=== PATIENT | female | born 1995 | race Caucasian/White ===

== ENCOUNTER 2023-11-05 18:34 | Inpatient (IN) | payer BC, SELFPAY ==
[2023-11-05 14:40] VITALS: BP 143/91
--- NOTE | 2023-11-05 15:42 | ED.GENMED ---
History of Present Illness
<Erin Wesley PA-C - Last Filed: 11/05/23 21:11>
General
Chief Complaint: Urinary Symptoms
Source: patient
Exam Limitations: none
Time Seen by Provider: 11/05/23 15:10
Nursing documentation reviewed up to this point in time: agreed with
Travel History
Have you had any contact with someone who has COVID-19?: No
Do you have any symptoms of coronavirus? Fever > 100 degrees, chills, cough, shortness of breath, sore throat, loss of taste or smell, muscle aches, or headache?: No
History of Present Illness
History of Present Illness:
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
last week tested and treated for yeast and vbv (1 dose diflucan, flagyl 7 days)
started with back pain 3 datys ago, suspected fever overnight. went to PCP 2 days ago and said she was having vaginal bleeding and no urinary sypmtoms, but had nausea/vomitinx 1
they sent urine culture and empirically started her on bactrim
she had no urainry symptoms at the time
took 3 total doses of bactrim
says her last tempw as last night 102.8 t max
has been using tylenol 2 extra strength 3-4 times a day
today she notices that her eyes are yellow
she has no sanchez any skin itching or yellowing, cp, sob, abdominal pain
she is having her period a few days earlier than usual
Past History
<Erin Wesley PA-C - Last Filed: 11/05/23 21:11>
Past History
ED Past Medical History: Other (ARF secondary to abx, dilaysis x 1 ) and Other (ovarian cyst)
Social History
Tobacco: Non-smoker
Alcohol: None
Review of Systems
<Erin Wesley PA-C - Last Filed: 11/05/23 21:11>
Review of Systems
Allergies reviewed?: Yes
All Other Systems: Not applicable
Phy Exam
<Erin Wesley PA-C - Last Filed: 11/05/23 21:11>
Physical Exam
Physical Exam:
GENERAL: Alert , in no apparent distress
EYE: pupils equal and reactive , sclera icteric
NECK: Supple
ENT: o/p clr, mmm.
CARDIAC: Regular rate and rhythm .no edema
LUNGS: Clear breath sounds bilaterally, no acute respiratory distress, no wheezes/rales/rhonchi
ABDOMEN: Soft, without focal tenderness, no r/g, no cvat, normal bowel sounds
nontender
no pulido's sign
no cvat
NEUROLOGICAL: Alert and oriented, no focal neuro deficits
SKIN: Warm and dry, skin intact, no jaundice
MUSCULOSKELETAL: No edema, well perfused. neg levon's sign
PSYCH: Normal and appropriate interaction.
Course
<Erin Wesley PA-C - Last Filed: 11/05/23 21:11>
Orders/Labs/Results
Orders:
Orders
11/05/23 Dinner
Regular
At Your Request: Full Participation
11/05/23 15:25
Test Result ONCE
11/05/23 15:26
0.9% Sodium Chloride 1000 ml [Nss] 1,000 ml IV BOLUS
11/05/23 16:14
Acetaminophen Urgent
Complete Blood Count/With Diff Urgent
Comprehensive Metabolic Panel Urgent
Direct Bilirubin Urgent
Comment: ADDON
GGTP Urgent
Comment: ADD ON
HCG, Serum Qualitative Screen Urgent
Hepatitis A Antibody, Total Urgent
Comment: ADDON
Hepatitis B Core Ab, Total Urgent
Comment: ADDON
Hepatitis B Surface Antigen Urgent
Comment: ADDON
Hepatitis C Antibody Urgent
Comment: ADDON
LDH Urgent
Comment: ADD ON
Lipase Urgent
Manual Differential Urgent
Monotest Urgent
PTT Urgent
Prothrombin Time Urgent
Urinalysis Urgent
Date Specimen was Collected: 11/05/23
Time Specimen was Collected: 14:48
Urine Microscopic Urgent
Date Specimen was Collected: 11/05/23
Time Specimen was Collected: 14:48
Urine Culture Urgent
[place] Source: Urine
Specimen Description:
Obtained by: [facility]
Date Specimen was Collected: 11/05/23
Time Specimen was Collected: 14:48
11/05/23 17:06
US Abdomen Complete/Upper Urgent
Comment:
Reason For Exam: DRUG INDUCED LIVER INJURY
11/05/23 17:37
Add On- LAB Urgent
Tests Added?: hepatitis a, hep b core and surface, hep c
11/05/23 17:45
Add On- LAB Routine
Tests Added?: direct bilirubin
11/05/23 18:23
Admit/Transfer Patient As Directed
Co-Sign Provider:
Level of Care: Inpatient admission
Assign to:: Medical/Surgical
Physician / Group: Nasra
Diagnosis: Acute hepatitis
Reason for Hospitalization: hepatitis
Expected length of stay greater than two midnights?: Yes
ELOS- Estimated Length of Stay in days: 2
I certify the patient meets the requirements for IP care: Yes
11/05/23 18:24
Code Status As Directed
Resuscitation Status: Full Code
11/05/23 18:27
Add On- LAB Routine
Tests Added?: LDH, GGT
11/05/23 19:25
0.9% Sodium Chloride 1000 ml [Nss] 1,000 ml IV 80 mls/hr
Acetaminophen [Tylenol] 650 mg PO Q6HPRN PRN
Ondansetron Injectable [Zofran] 4 mg IV Q6HPRN PRN
11/05/23 19:25
Activity As Directed
Activity Level: Ambulate
DX Deep Vein Thrombosis Video Routine
11/06/23 06:00
Complete Blood Count/With Diff IN AM
Comprehensive Metabolic Panel IN AM
11/06/23 18:00
Enoxaparin Sodium [Lovenox] 40 mg SC QPM
11/07/23 06:00
Complete Blood Count/With Diff IN AM
Comprehensive Metabolic Panel IN AM
Abnormal Lab Results
11/05/23
16:14
RBC 4.17 L 10^6/uL
(4.20-5.40)
Hgb 11.4 L g/dL
(12.0-16.0)
Hct 35.1 L %
(37.0-47.0)
MCHC 32.5 L g/dL
(33.0-37.0)
Plt Count 126 L 10^3/uL
(130-400)
PT 15.0 H Sec
(11.4-14.6)
Glucose 104 H mg/dl
(70-99)
Total Bilirubin 6.0 H mg/dl
(0.2-1.3)
Direct Bilirubin 4.3 H mg/dl
(0.0-0.4)
GGT 427 H U/L
(12-43)
AST 232 H U/L
(14-36)
ALT 218 H U/L
(0-35)
Alkaline Phosphatase 427 H U/L
(38-126)
Lactate Dehydrogenase 975 H U/L
(120-246)
Urine Occult Blood 4+ A
(Negative)
Urine Bilirubin 2+ A
(Negative)
Urine Urobilinogen 4+ A
(Neg - 1+)
Ur Leukocyte Esterase Trace A
(Negative)
Urine RBC 30-40 A /HPF
(0-2)
Urine Bacteria Few A
(Negative)
Acetaminophen < 10 L ug/ml
(10-30)
11/05/23 16:14
11/05/23 16:14
Vital Signs
Initial and Last Documented VS:
Initial Vital Signs
Temp Pulse Resp BP Pulse Ox
99.4 F 87 18 143/91 98
11/05/23 14:40 11/05/23 14:40 11/05/23 14:40 11/05/23 14:40 11/05/23 14:40
Last Documented Vital Signs
Temp Pulse Resp BP Pulse Ox
101.1 F H 112 18 124/82 97
11/05/23 20:19 11/05/23 20:19 11/05/23 20:19 11/05/23 20:19 11/05/23 20:19
<Jimbo Vail, DO - Last Filed: 11/05/23 16:35>
Orders/Labs/Results
Orders:
Orders
11/05/23 Dinner
Regular
At Your Request: Full Participation
11/05/23 15:25
Test Result ONCE
11/05/23 15:26
0.9% Sodium Chloride 1000 ml [Nss] 1,000 ml IV BOLUS
11/05/23 16:14
Acetaminophen Urgent
Complete Blood Count/With Diff Urgent
Comprehensive Metabolic Panel Urgent
Direct Bilirubin Urgent
Comment: ADDON
GGTP Urgent
Comment: ADD ON
HCG, Serum Qualitative Screen Urgent
Hepatitis A Antibody, Total Urgent
Comment: ADDON
Hepatitis B Core Ab, Total Urgent
Comment: ADDON
Hepatitis B Surface Antigen Urgent
Comment: ADDON
Hepatitis C Antibody Urgent
Comment: ADDON
LDH Urgent
Comment: ADD ON
Lipase Urgent
Manual Differential Urgent
Monotest Urgent
PTT Urgent
Prothrombin Time Urgent
Urinalysis Urgent
Date Specimen was Collected: 11/05/23
Time Specimen was Collected: 14:48
Urine Microscopic Urgent
Date Specimen was Collected: 11/05/23
Time Specimen was Collected: 14:48
Urine Culture Urgent
[place] Source: Urine
Specimen Description:
Obtained by: [facility]
Date Specimen was Collected: 11/05/23
Time Specimen was Collected: 14:48
11/05/23 17:06
US Abdomen Complete/Upper Urgent
Comment:
Reason For Exam: DRUG INDUCED LIVER INJURY
11/05/23 17:37
Add On- LAB Urgent
Tests Added?: hepatitis a, hep b core and surface, hep c
11/05/23 17:45
Add On- LAB Routine
Tests Added?: direct bilirubin
11/05/23 18:23
Admit/Transfer Patient As Directed
Co-Sign Provider:
Level of Care: Inpatient admission
Assign to:: Medical/Surgical
Physician / Group: Nasra
Diagnosis: Acute hepatitis
Reason for Hospitalization: hepatitis
Expected length of stay greater than two midnights?: Yes
ELOS- Estimated Length of Stay in days: 2
I certify the patient meets the requirements for IP care: Yes
11/05/23 18:24
Code Status As Directed
Resuscitation Status: Full Code
11/05/23 18:27
Add On- LAB Routine
Tests Added?: LDH, GGT
11/05/23 19:25
0.9% Sodium Chloride 1000 ml [Nss] 1,000 ml IV 80 mls/hr
Acetaminophen [Tylenol] 650 mg PO Q6HPRN PRN
Ondansetron Injectable [Zofran] 4 mg IV Q6HPRN PRN
11/05/23 19:25
Activity As Directed
Activity Level: Ambulate
DX Deep Vein Thrombosis Video Routine
11/06/23 06:00
Complete Blood Count/With Diff IN AM
Comprehensive Metabolic Panel IN AM
11/06/23 18:00
Enoxaparin Sodium [Lovenox] 40 mg SC QPM
11/07/23 06:00
Complete Blood Count/With Diff IN AM
Comprehensive Metabolic Panel IN AM
Abnormal Lab Results
11/05/23
16:14
RBC 4.17 L 10^6/uL
(4.20-5.40)
Hgb 11.4 L g/dL
(12.0-16.0)
Hct 35.1 L %
(37.0-47.0)
MCHC 32.5 L g/dL
(33.0-37.0)
Plt Count 126 L 10^3/uL
(130-400)
PT 15.0 H Sec
(11.4-14.6)
Glucose 104 H mg/dl
(70-99)
Total Bilirubin 6.0 H mg/dl
(0.2-1.3)
Direct Bilirubin 4.3 H mg/dl
(0.0-0.4)
GGT 427 H U/L
(12-43)
AST 232 H U/L
(14-36)
ALT 218 H U/L
(0-35)
Alkaline Phosphatase 427 H U/L
(38-126)
Lactate Dehydrogenase 975 H U/L
(120-246)
Urine Occult Blood 4+ A
(Negative)
Urine Bilirubin 2+ A
(Negative)
Urine Urobilinogen 4+ A
(Neg - 1+)
Ur Leukocyte Esterase Trace A
(Negative)
Urine RBC 30-40 A /HPF
(0-2)
Urine Bacteria Few A
(Negative)
Acetaminophen < 10 L ug/ml
(10-30)
11/05/23 16:14
11/05/23 16:14
Vital Signs
Initial and Last Documented VS:
Initial Vital Signs
Temp Pulse Resp BP Pulse Ox
99.4 F 87 18 143/91 98
11/05/23 14:40 11/05/23 14:40 11/05/23 14:40 11/05/23 14:40 11/05/23 14:40
Last Documented Vital Signs
Temp Pulse Resp BP Pulse Ox
101.1 F H 112 18 124/82 97
11/05/23 20:19 11/05/23 20:19 11/05/23 20:19 11/05/23 20:19 11/05/23 20:19
<Erin Wesley PA-C - Last Filed: 11/05/23 21:11>
MDM/Problems Addressed
Differential Diagnosis Includes:
DILI, cholangitis, choledocholithaisis, heptatitis, mono
MDM/Problems Addressed:
28 y/o F with h/o remote ARF requiring 1 dialysis treatment (had ovarian cyst that got infected, was on abx i think vanc, and ended up in ARF
otherwise healthy
last week had vag itching and irritation, treated with diflucan and flagyl
started having back pain 3 days ago, n/v x 1, then fever; taking tylenol
n/v/back pain resolved; PCP saw her 2 days ago and gave bactrim empirically for UTI though no urinary sypmtoms
now icteric sclera; trasaminitis 200s, bili 6, tyylenol level < 10, cr normal
added on hepatitis panel, i'm suspecting the diflucna or flagyl
US was hepatic steatosis
admit, gi
<Erin O'Brien, PA-C - Last Filed: 11/05/23 21:11>
*Critical Care Note
Total Time (30-74mins, 75-104mins- exclusive of procedures): Not Applicable
ED Attending Note
<Erin Wesley PA-C - Last Filed: 11/05/23 21:11>
-
Portions of this chart may have been created with voice recognition software.� Occasional wrong word or��sound alike� substitutions may have occurred due to the inherent limitations of voice recognition software.
<Jimbo Vail DO - Last Filed: 11/05/23 16:35>
ED Attending Note
Patient seen and examined by attending physician: Yes
I performed the substantive portion of visit, reviewed & personally made and approve the management plan that is documented in note by myself or ARELI.: Yes
ED Attending Note:
Patient is a 28-year-old female with a history of 1 episode of renal dialysis following vancomycin for staph infection related to ovarian cysts surgery and presents today with fever chills yellowish sclera along with having neck and back pain that
started couple days ago but is feeling better today. Patient was treated with Flagyl and Diflucan for bacterial vaginosis. Patient had a temp of 102 and went to see her physician a couple days ago and was started on Bactrim. Patient did not have
a urine test done at that time. Patient complains of coughing with no production. Patient denies nasal congestion. On physical exam patient feels warm. Neck is supple without adenopathy or tenderness. Heart is regular lungs are clear. Abdomen
is nontender with no CVA tenderness. Will wait lab results but anticipate having to do further studies. This may be all due to a viral versus possible pyelonephritis.
Discharge Plan
Departure
Patient Disposition: Admit
Date of Disposition: 11/05/23
Time of Disposition: 17:38
Admit to: Med/Surg
Presentation/result/management discussed w/ accepting MD/DO: Hospitalist
Condition: Fair
Covid-19: Not Applicable
Discharge Problem:
Hyperbilirubinemia, Drug-induced liver injury
Interventions
Interventions:
*Risk Screen - Suicide Last Done: 11/05/23 20:52
*General Assessment Last Done: 11/05/23 14:40
*Neglect/Abuse Screening Last Done: 11/05/23 14:40
ED- Fall Risk Assessment Last Done: 11/05/23 16:31
*ED COVID-19 Vaccine History Last Done: 11/05/23 19:49
*Nursing Disposition Last Done: 11/05/23 19:20
ED-Female Genitourinary Assessment Last Done: 11/05/23 16:31
Discharge Date and Time
Discharge Date/Time: 11/05/23 19:22
[2023-11-05] MEDS: NSS 1000 IV ×2 (16:25→19:44)
[2023-11-05 16:33] LABS: Hematocrit 35.1 % (37.0-47.0); Hemoglobin 11.4 g/dL (12.0-16.0); Mean Corp Hgb Conc. 32.5 g/dL (33.0-37.0); Mean Corpuscular Hgb 27.3 pg (27.0-31.0); Mean Corpuscular Volume 84.2 fL (81.0-99.0); Mean Platelet Volume 9.9 fL (7.4-10.4); Platelet Count 126 10^3/uL (130-400); Red Blood Cell Count 4.17 10^6/uL (4.20-5.40); Red Cell Dist. Width 13.9 % (11.5-14.5); White Blood Cell Count 8.3 10^3/uL (4.8-10.8)
[2023-11-05 16:34] LABS: Urine Albumin Trace (Neg - Trace); Urine Bilirubin 2+ (Negative); Urine Character Clear (Clear); Urine Color Yellow; Urine Glucose Negative (Negative); Urine Ketone Negative (Negative); Urine Leukocyte Trace (Negative); Urine Nitrite Negative (Negative); Urine Occult Blood 4+ (Negative); Urine Urobilinogen 4+ (Neg - 1+); Urine pH 6.5 (5.0-9.0)
[2023-11-05 16:41] LABS: Urine Squamous Cell 26-30 /LPF (Few)
[2023-11-05 16:42] LABS: Urine Bacteria Few (Negative); Urine Red Blood Cell 30-40 /HPF (0-2)
[2023-11-05 16:48] LABS: APTT 33.5 Sec (23.4-35.0); HCG, Serum Qualitative Screen Negative
[2023-11-05 16:49] LABS: ALT (SGPT) 218 U/L (0-35); AST (SGOT) 232 U/L (14-36); Albumin 4.2 g/dl (3.5-5.0); Alkaline Phosphatase 427 U/L (38-126); Blood Urea Nitrogen 7 mg/dl (7-17); Calcium 9.3 mg/dl (8.4-10.2); Carbon Dioxide 27 mmol/L (22-30); Chloride 100 mmol/L (98-107); Glucose 104 mg/dl (70-99); Potassium 4.1 mmol/L (3.5-5.1); Sodium 135 mmol/L (135-145); Total Protein 7.5 g/dl (6.3-8.2); eGFR > 60.00
[2023-11-05 17:12] LABS: Pathologist Reviewed No; Segmented Neutrophils 42 % (42-75)
[2023-11-05 17:13] LABS: Absolute Neutrophils -Man Diff 3.5 10^3/uL (1.4-6.5); Atypical Lymphocytes 11 %; Band Neutrophils 1 % (0-3); Lymphocytes 41 % (20-51); Monocytes 5 % (2-9); Normal RBC Morphology Yes; Platelets Checked Yes; Total Cells Counted 100
[2023-11-05 17:17] VITALS: BMI 50.0
[2023-11-05 17:27] LABS: Acetaminophen < 10 ug/ml (10-30); Lipase 96 U/L (23-300)
[2023-11-05 17:33] LABS: Monotest Negative (Negative)
--- NOTE | 2023-11-05 18:28 | HPS.HSE ---
Family Physician
-
Family Physician: IVON Wallace
Chief Complaint
-
Jaundice
History of Present Illness
28-year-old female here complaining of jaundice. Was diagnosed with bacterial vaginosis 2 weeks ago, treated with a course of metronidazole for 7 days. Also received 1 dose of fluconazole for vaginal candidiasis last week.
Started developing back pain 3 days ago with associated fever and went to see primary care doctor who empirically started her on Bactrim yesterday for presumed urinary tract infection. Her urine was not tested.
She took 3 doses of Bactrim prior to arrival.
Denies any rash.
States her lower back pain overall has improved. However today started developing dysuria.
Also having vaginal bleeding that she attributes to her menses although she states it is early by a couple days.
Had a CMP done yesterday prior to starting Bactrim, I reviewed the results on her phone and it did show elevated AST and ALT in the 100-200 range, alkaline phosphatase in the 300 range, bilirubin of 1.2.
She admits to taking 4000 mg of Tylenol yesterday for fever, 2000 mg today.
Medical History
Past Medical History
Past Medical History: Reports Other
Additional Past Medical History:
Transient acute kidney failure requiring 1 episode of dialysis -2017
Anxiety/depression
Morbid obesity
Past Surgical History: Reports Other
Additional Past Surgical History:
Large left ovarian cyst resection
Abdominal lipoma resection
Social History
Tobacco: Non-smoker
Alcohol: Occasional
Drug: None
Employment: Employed
Family History
Family History: Other (Mother has fatty liver disease)
Allergies / Home Medications
Allergies reflects when Allergies were last updated in [facility].
Home Medications with original date entered in [facility]
Allergy/Medication List:
Allergies
Allergy/AdvReac Type Severity Reaction Status Date / Time
acetaminophen [From Percocet] Allergy Shortness Verified 11/05/23 14:45
of Breath
Iodinated Contrast Media Allergy Hives Verified 11/05/23 14:45
ketorolac [From Toradol] Allergy Unknown Verified 11/05/23 14:45
latex Allergy Rash Verified 11/05/23 14:45
oxycodone [From Percocet] Allergy Shortness Verified 11/05/23 14:45
of Breath
vancomycin Allergy Unknown Verified 11/05/23 14:45
Home Medications
acetaminophen 325 mg tablet (Tylenol) 325 mg PO Q6HPRN PRN MILD PAIN 11/05/23
cetirizine 10 mg tablet (Zyrtec) 10 mg PO HS 11/05/23
sertraline 25 mg tablet 25 mg PO HS 11/05/23
sulfamethoxazole 800 mg-trimethoprim 160 mg tablet (Bactrim DS) 1 tab PO BID 11/05/23
Review of Systems
-
History Source: Patient
A 12 point ROS was completed and negative except as noted: Yes
: Reports Dysuria and Bleeding (Vaginal bleeding)
Physical Exam
Vital Signs
Vital Signs
Temp Pulse Resp BP Pulse Ox
99.4 F 87 18 143/91 98
11/05/23 14:40 11/05/23 14:40 11/05/23 14:40 11/05/23 14:40 11/05/23 14:40
Physical Exam
General: Well Developed, Well Nourished, No Apparent Distress and Comfortable
HEENT: NormoCephalic, Anicteric and Moist mucous membranes
Respiratory: Clear
Cardiac: S1/S2 and Regular Rhythm
Breast: Deferred by me
GI: Soft, Non Tender and Non Distended
Genito-urinary: Deferred by me
Musculoskeletal: No Clubbing, No Cyanosis and No Edema
Skin: Warm and Dry; No Rash
Neuro: AO x 3
Hematologic/Lymphatic: No Lymphadenopathy
Psych: Calm
Laboratory Results
-
11/05/23 16:14
11/05/23 16:14
Laboratory Results
PT 15.0 Sec (11.4-14.6) H 11/05/23 16:14
INR 1.20 11/05/23 16:14
APTT 33.5 Sec (23.4-35.0) 11/05/23 16:14
Total Bilirubin 6.0 mg/dl (0.2-1.3) H 11/05/23 16:14
AST 232 U/L (14-36) H 11/05/23 16:14
ALT 218 U/L (0-35) H 11/05/23 16:14
Alkaline Phosphatase 427 U/L (38-126) H 11/05/23 16:14
Lipase 96 U/L (23-300) 11/05/23 16:14
Impression/Plan
-
Acute hepatitis - concern for drug-induced hepatitis (DILI), possibly due to Bactrim exposure. She may have some underlying chronic fatty liver disease due to obesity given that her transaminases were elevated prior to starting Bactrim. However
her bilirubin went up significantly after Bactrim exposure. Doubt hemolysis, can send haptoglobin. Low likelihood of G6PD deficiency. Direct bilirubin level 4.3, total bilirubin 6.0. GGT 427, LDH 975..
Check acute viral hepatitis panel though unlikely.
Admit to MedSurg. Continue supportive care. Recheck labs tomorrow. Check liver ultrasound.
Dysuria -urinalysis does not show pyuria. It does show hematuria likely due to her menses. Urine culture was sent, hold off on further antibiotics for now.
Thrombocytopenia -unknown etiology or acuity but Bactrim can certainly cause. Recheck CBC in the morning.
Normocytic anemia -hemoglobin 11.4. Baseline hemoglobin unknown.
Anxiety/depression -on sertraline.
Morbid obesity due to excess calories
Full code
[2023-11-05 18:36] LABS: Direct Bilirubin 4.3 mg/dl (0.0-0.4)
[2023-11-05 18:39] LABS: GGTP 427 U/L (12-43); LDH 975 U/L (120-246)
[2023-11-05 19:19] VITALS: BP 140/87
[2023-11-05] MEDS: ZOFRAN 4 MG IV (19:44)
[2023-11-05] MEDS: TYLENOL 650 MG PO (19:44)
--- NOTE | 2023-11-05 20:00 | PTCARENOTE ---
Patient admitted from ED. Patient AAO x3, on RA, in no acute distress. Patient complains of nausea. Patient oriented to room and call darling within reach.
[2023-11-05 20:19] VITALS: BP 124/82; BMI 46.1
[2023-11-05] MEDS: ZOLOFT 25 MG PO (22:27)
[2023-11-05 23:41] VITALS: BP 127/77
[2023-11-06 07:17] LABS: Hematocrit 31.9 % (37.0-47.0); Hemoglobin 10.7 g/dL (12.0-16.0); Mean Corp Hgb Conc. 33.5 g/dL (33.0-37.0); Mean Corpuscular Hgb 28.9 pg (27.0-31.0); Mean Corpuscular Volume 86.2 fL (81.0-99.0); Mean Platelet Volume 9.9 fL (7.4-10.4); Nucleated Red Blood Cells % 0 %; Platelet Count 109 10^3/uL (130-400); Red Cell Dist. Width 14.6 % (11.5-14.5); White Blood Cell Count 6.5 10^3/uL (4.8-10.8)
[2023-11-06] MEDS: ZOFRAN 4 MG IV (07:38)
[2023-11-06 07:42] LABS: ALT (SGPT) 211 U/L (0-35); AST (SGOT) 222 U/L (14-36); Albumin 3.6 g/dl (3.5-5.0); Alkaline Phosphatase 368 U/L (38-126); Blood Urea Nitrogen 7 mg/dl (7-17); Calcium 8.6 mg/dl (8.4-10.2); Carbon Dioxide 23 mmol/L (22-30); Chloride 104 mmol/L (98-107); Estimated Creatinine Clearance > 125 ml/min; Glucose 98 mg/dl (70-99); Potassium 4.2 mmol/L (3.5-5.1); Sodium 135 mmol/L (135-145); Total Bilirubin 3.8 mg/dl (0.2-1.3); Total Protein 6.6 g/dl (6.3-8.2); eGFR > 60.00
[2023-11-06] MEDS: TYLENOL 650 MG PO (08:04)
[2023-11-06 08:08] VITALS: BP 128/83
--- NOTE | 2023-11-06 09:56 | W.PN.HOSP.TC ---
Today's Communication/Plan
-
Discharge
Assessment / Plan
Assessment / Plan
Gen-AAOx3, NAD, morbid obesity
HEENT-NC, AT, anicteric, clear oral mm
Neck-supple
CV-reg, no M, +S1/S2
Lungs-clear B/L
Abd-soft, NT, ND
Ext-no edema
Musculoskeletal-no cyanosis, clubbing
Skin-warm and dry
Neuro-grossly non-focal
Psych-calm, cooperative
Acute hepatitis - concern for drug-induced hepatitis (DILI), possibly due to Bactrim exposure. She may have some underlying chronic fatty liver disease due to obesity given that her transaminases were elevated prior to starting Bactrim. However
her bilirubin went up significantly after Bactrim exposure.
Viral hepatitis panel pending.
Liver ultrasound shows severe diffuse liver disease, possible diffuse hepatic steatosis. No biliary ductal obstruction, no cholelithiasis. No ascites. Moderate splenomegaly. Recommend follow-up outpatient with GI. Weight loss recommended.
Transaminases remain relatively stable compared to yesterday. Bilirubin and alkaline phosphatase coming down. Suspect etiology is likely underlying hepatic steatosis with worsening labs due to Bactrim exposure.
Etiology of fever unclear. No signs or symptoms of sepsis. White blood cell count normal. Blood and urine culture sent, pending. She looks nontoxic. Will hold antibiotics for now.
Dysuria -urinalysis does not show pyuria. It does show hematuria likely due to her menses. Urine culture was sent, hold off on further antibiotics for now.
Thrombocytopenia -unknown etiology or acuity but Bactrim can certainly cause. Recheck CBC in the morning.
Normocytic anemia -hemoglobin 10.7. Baseline hemoglobin unknown. Recommend close follow-up with PCP after discharge.
Anxiety/depression -on sertraline.
Morbid obesity due to excess calories
Full code
Dispo -stable for discharge today. Recommend follow-up with PCP this week. Follow-up with GI.
Updated mother on the phone. All questions answered.
33 minutes spent in discharge process.
Anticipated Discharge: Today
Subjective/Interval History
-
Date of Service: November 06, 2023
Patient seen and examined. No new complaints. Still with mild dysuria.
Objective Data
-
Labs:
Laboratory Results
11/06/23
06:31
WBC 6.5
Hgb 10.7 L
Hct 31.9 L
Plt Count 109 L
Sodium 135
Potassium 4.2
Chloride 104
Carbon Dioxide 23
BUN 7
Creatinine 0.5 L
Glucose 98
Calcium 8.6
Total Bilirubin 3.8 H
AST 222 H
ALT 211 H
Alkaline Phosphatase 368 H
Vital Signs:
Vital Signs
Temp Pulse Resp BP Pulse Ox
98.8 F 63 14 128/83 96
11/06/23 08:08 11/06/23 08:08 11/06/23 08:08 11/06/23 08:08 11/06/23 08:10
I&O
11/05/23 11/06/23 11/07/23
06:59 06:59 06:59
Intake Total 1020 / 1020
Balance 1020 / 1020
Review of Systems
-
History Source: Patient
All other systems: Reviewed and negative
--- NOTE | 2023-11-06 10:04 | W.DS.TRANS ---
DC Summary - W[facility] Tender
-
Discharge Instructions:
Discharge Diagnosis/Procedures Acute hepatitis, anemia, thrombocytopenia
Diet Regular
Activity As tolerated
Driving Restrictions As prior to admission
Bathing Restrictions None
Blood Work CMP and CBC in 1 week with your primary care
doctor
Instructions:
Stand-Alone Forms:
Changes to Home Medications: Yes
Discharge Medications:
DC Medications w/original date entered in [facility]
cetirizine 10 mg tablet (Zyrtec) 10 mg PO HS Allergies 11/05/23
sertraline 25 mg tablet 25 mg PO HS Depression 11/05/23
Home Medication Changes
Stop Bactrim.
Pending Results: No
[2023-11-06 12:22] LABS: Absolute Neutrophils -Man Diff 1.8 10^3/uL (1.4-6.5); Band Neutrophils 5 % (0-3); Eosinophils 1 % (0-6); Lymphocytes 45 % (20-51); Monocytes 8 % (2-9); Segmented Neutrophils 24 % (42-75)
[2023-11-06 12:23] LABS: Atypical Lymphocytes 16 %; Metamyelocytes 1 % (-)
[2023-11-06 12:24] LABS: Platelets Checked YES
[2023-11-06 12:26] LABS: Normal RBC Morphology Yes; Total Cells Counted 100
[2023-11-07 14:18] LABS: Haptoglobin 105 mg/dL (30-200)
[2023-11-08 18:48] LABS: Hepatitis B Surface Antigen Negative (Negative)
[2023-11-08 19:05] LABS: Hepatitis B Core Ab, Total Negative (Negative); Hepatitis C Antibody Negative (Negative)
[2023-11-08 19:24] LABS: Hepatitis A Antibody, Total Positive (Negative)
== END 2023-11-06 10:42 | disposition home or self-care (01) | DRG 442 ==
LOC: 4 WEST ACU 18:34
PROVIDERS: Emergency Medicine; Physician Assistant; ADMITTING PHYSICIAN Hospitalist; EMERGENCY PHYSICIAN Emergency Medicine; FAMILY PHYSICIAN Nurse Practitioner Family
DX: K71.2 Toxic liver disease with acute hepatitis (principal); Z68.42 Body mass index [BMI] 45.0-49.9, adult; D69.6 Thrombocytopenia, unspecified; K76.0 Fatty (change of) liver, not elsewhere classified; F32.A Depression, unspecified; D64.9 Anemia, unspecified; E66.01 Morbid (severe) obesity due to excess calories; F41.9 Anxiety disorder, unspecified; T36.8X5A Adverse effect of other systemic antibiotics, initial encounter; R50.9 Fever, unspecified; R30.0 Dysuria; Z86.19 Personal history of other infectious and parasitic diseases; Z87.440 Personal history of urinary (tract) infections
CPT/HCPCS: 76700; 80053; 80143; 81003; 81015; 82248; 82977; 83010; 83615; 83690; 84703; 85025; 85610; 85730; 86308; 86704; 86708; 86803; 87040; 87086; 87340; 96360; 99284